=== PATIENT | male | born 1995 | race Two or more races ===

== ENCOUNTER 2024-09-09 16:06 | Emergency (ER) | payer MEDICAID, OTHER ==
[~2024-09-09] VITALS: Ht 157.5 cm; Wt 75.0 kg
[2024-09-09 16:17] VITALS: BP 138/78; PULSE 112; RESP 16; O2SAT 99
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
[2024-09-09] MEDS ORDERED: HYDROcodone-ACET 10/325MG TAB PO ONE (16:30)
== END 2024-09-09 19:47 | disposition left against medical advice (07) ==
LOC: ER 16:06
DX: M79.652 Pain in left thigh (principal); W23.0XXA Caught, crushed, jammed, or pinched between moving objects, initial encounter; Y93.89 Activity, other specified; Y92.89 Other specified places as the place of occurrence of the external cause; Y99.8 Other external cause status

== ENCOUNTER 2025-02-05 13:40 | Emergency (ER) | payer MEDICAID, OTHER ==
[~2025-02-05] VITALS: Ht 157.5 cm; Wt 71.3 kg
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
[2025-02-05 14:49] VITALS: BP 133/76; PULSE 98; RESP 16; TEMP 98.9; O2SAT 97
[2025-02-05 15:11] LABS: Basophils # (auto) 0 10 ^3/uL (0-0.2); Basophils % (auto) 0.5 % (0.0-2.0); Eosinophils # (auto) 0.2 10 ^3/uL (0-0.8); Eosinophils % (auto) 2.3 % (0.0-7.0); Hematocrit 41.6 % (41.0-53.0); Hemoglobin 14.1 g/dL (13.5-17.5); Lymphocytes # (auto) 2.6 10 ^3/uL (0.4-5.4); Lymphocytes % (auto) 28.3 % (10.0-50.0); Mean Corpuscular Hemoglobin 29.5 pg (28.0-32.0); Mean Corpuscular Volume 86.8 fL (80.0-100.0); Monocytes % (auto) 10.9 % (0.0-12.0); Neutrophils # (auto) 5.3 10 ^3/uL (1.6-8.6); Nucleated Red Blood Cells % 0.1 %; Platelet Count (auto) 365 10^3/uL (140-450); Red Cell Distribution Width 13.9 % (11.8-14.3); White Blood Cell 9.1 10^3/uL (4.4-10.8)
[2025-02-05 15:17] LABS: Chloride 105 mmol/L (98-107); Potassium 3.8 mmol/L (3.5-5.1); Sodium 139 mmol/L (136-145)
[2025-02-05 15:18] LABS: Anion Gap 6 (5-15); Calcium 9.1 mg/dL (8.7-10.4); Carbon Dioxide 28 mmol/L (20-31)
[2025-02-05 15:23] LABS: BUN/Creatinine Ratio 14.6 (10.0-20.0); Blood Urea Nitrogen 12 mg/dL (9-23); Glucose 93 mg/dL (74-106)
[2025-02-05] MEDS: cefTRIAXone SOD 1,000 MG VL IM ONE (16:22)
[2025-02-05] MEDS ORDERED: IBUP1TAB5 PO (16:23)
[2025-02-05] MEDS ORDERED: CIPR-173 PO (16:23)
[2025-02-05] MEDS: TETANUS-DIPTH-ACEL PERTUSSIS 0.5ML SYR Tdap IM ONE (16:23)
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
== END 2025-02-05 16:32 | disposition home or self-care (01) ==
LOC: ER 13:40
DX: S60.415A Abrasion of left ring finger, initial encounter (principal); X58.XXXA Exposure to other specified factors, initial encounter; Y93.89 Activity, other specified; Y92.89 Other specified places as the place of occurrence of the external cause; Y99.8 Other external cause status
CPT/HCPCS: 36415; 73130; 80048; 85025; 90471; 90715; 96372; 99284; J0696

== ENCOUNTER 2025-06-06 23:43 | Emergency (ER) | payer MEDICAID ==
[~2025-06-06] VITALS: Ht 157.5 cm; Wt 75.0 kg
[~2025-06-06 23:43] MED LIST: CIPR-173 PO; IBUP1TAB5 PO
[2025-06-06 23:46] VITALS: BP 128/90; PULSE 87; RESP 18; TEMP 98.5; O2SAT 100
[2025-06-07] MEDS ORDERED: HYDROcodone-ACET 10/325MG TAB PO ONE
[2025-06-07] MEDS ORDERED: KETOROLAC TROMETH 60MG/2ML VIAL IM ONE
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
[2025-06-07] MEDS ORDERED: CEPH500C PO (01:39)
[2025-06-07] MEDS ORDERED: IBUP-1456 PO (01:53)
== END 2025-06-07 04:09 | disposition home or self-care (01) ==
LOC: ER 23:43
DX: T22.211A Burn of second degree of right forearm, initial encounter (principal); T22.232A Burn of second degree of left upper arm, initial encounter; X58.XXXA Exposure to other specified factors, initial encounter; Y93.89 Activity, other specified; Y92.89 Other specified places as the place of occurrence of the external cause; Y99.8 Other external cause status
CPT/HCPCS: 16020

== ENCOUNTER 2025-06-09 20:06 | Emergency (ER) | payer MEDICAID ==
[~2025-06-09] VITALS: Ht 157.5 cm; Wt 67.9 kg
[~2025-06-09 20:06] MED LIST changes: +CEPH500C PO; +IBUP-1456 PO
[2025-06-09] MEDS ORDERED: AUG875T PO (20:37)
[2025-06-09] MEDS ORDERED: CLIN1CAP70 PO (20:37)
--- NOTE | 2025-06-09 20:39 | ED.PDOC ---
History of Present Illness HPI Comments 29 y/o M presents with c/c left jaw cheek swelling and pain, with associated difficulty swallowing. 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 Denial of any further acute symptoms. Chief Complaint: Face pain Time Seen by MD: 20:30 Primary Care Provider: EDISON Arteaga Notes: Nurses Notes, Medications, Allergies Allergies: Coded Allergies: NO KNOWN ALLERGIES (Unverified , 09/09/24) Home Meds Active Scripts Clindamycin Hcl (Clindamycin Hcl) 300 Mg Cap, 1 CAP PO BID for 7 Days, #14 CAP Prov:TESS HOOKER MD 06/09/25 Amoxicillin & Pot Clavulanate (AUGMENTIN TABLET) 875 Mg Tb, 875 MG PO BID for 10 Days, #20 TAB Prov:TESS HOOKER MD 06/09/25 Ibuprofen (Ibuprofen) 800 Mg Tab, 800 MG PO Q8HP PRN for 4 Days, #12 TAB Prov:GISSELL BANERJEE 06/07/25 Cephalexin Monohydrate (Cephalexin) 500 Mg Cap, 500 MG PO Q6HR for 5 Days, #25 CAP Prov:GISSELL BANERJEE 06/07/25 Ibuprofen Micronized (Ibuprofen) 600 Mg Tab, 600 MG PO TIDP PRN for 7 Days, #21 TAB 0 Refills Prov:MADELINE NINA NP 02/05/25 Ciprofloxacin Hcl (Cipro) 500 Mg Tab, 1 TAB PO BID for 7 Days, #14 TAB 0 Refills Prov:MADELINE NINA NP 02/05/25 Information Source: Patient Mode of Arrival: Ambulatory Past Medical History PAST MEDICAL HISTORY: Denies Surgical History: Denies all surgeries Family History Family History: Reviewed,noncontributory to illness, Unknown Social History Smoker: Non-Smoker Alcohol: Denies ETOH Use Drugs: Denies Drug Use Lives In: Home All Other Systems: Reviewed and Negative (As per HPI) Physical Exam General Appearance: No Apparent Distress, Normal HEENT: Pharynx Normal, TMs Normal, Other (left jaw cheeck swelling and tenderness, no fluctuance, neck is normal ) Neck: Full Range of Motion, Non-Tender, Normal, Normal Inspection Respiratory: Chest Non-Tender, Lungs Clear, No Accessory Muscle Use, No Respiratory Distress, Normal Breath Sounds Cardiovascular: No Edema, No JVD, No Murmur, No Gallop, Normal Peripheral Pulses, Regular Rate/Rhythm Breast Exam: Deferred Gastrointestinal: No Organomegaly, Non Tender, No Pulsatile Mass, Normal Bowel Sounds, Soft Genitalia: Deferred Pelvic: Deferred Rectal: Deferred Extremities: No calf tenderness, Normal capillary refill, Normal inspection, Normal range of motion, Non-tender, No pedal edema Musculoskeletal : Apperance: Normal Neurologic: Alert, fundraising officer II-XII nml as Tested, No Motor Deficits, Normal Affect, Normal Mood, No Sensory Deficits Cerebellar Function: Normal Reflexes: Normal Skin: Dry, Normal Color, Warm Lymphatic: No Adenopathy Was a procedure done? Was a procedure done?: No Differential Dx Considerations may include: tooth infection, medication noncompliance, among others X-Ray, Labs, Meds, VS Vital Signs Date Time Temp Pulse Resp B/P (MAP) Pulse Ox O2 Delivery O2 Flow Rate FiO2 06/10/25 00:43 107 18 103/68 (80) 99 06/09/25 22:30 99.7 124 16 137/94 (108) 100 99.7 06/09/25 22:30 124 16 100 Room Air 06/09/25 20:07 99.7 97 16 128/86 98 99.7 Current Medications Medications (Trade) Dose Ordered Sig/Sandra Route Start Time Stop Time Status Last Admin Clindamycin HCl (Cleocin Capsule) 300 mg ONCE ONCE PO 06/09/25 22:15 06/09/25 22:16 DC 06/09/25 22:32 Ketorolac Tromethamine (Toradol Injection) 30 mg ONCE ONCE IM 06/09/25 22:15 06/09/25 22:16 DC 06/09/25 22:32 Piperacillin Sod/ Tazobactam Sod 100 ml @ 100 mls/hr ONCE ONCE IV 06/09/25 22:30 06/09/25 23:29 DC 06/09/25 23:10 Sodium Chloride 1,000 ml @ 1,000 mls/hr Q1H ONCE IV 06/09/25 22:30 06/09/25 23:29 DC 06/09/25 22:44 Time of 1ST Reevaluation: 21:00 Reevaluation 1ST: Unchanged Patient Education/Counseling: Diagnosis, Treatment, Need For Follow Up Family Education/Counseling: Diagnosis, Treatment, Need For Follow Up SEPSIS Sepsis Screen Date sepsis recognized/suspect: Jun 09, 2025 Time Sepsis recognized/suspect: 2006 Recent Procedure: No On Antibiotic Therapy: No Respiratory Rate >20: No Heart Rate >90: Yes Temp<36 C (96.8 F) or >38.3 C: No SBP <90 or MAP <65 mmHG: No New Acute Mental Status Change: No Is the patient on CPAP, BIPAP,: No Vital Signs Date Time Temp Pulse Resp B/P (MAP) Pulse Ox O2 Delivery O2 Flow Rate FiO2 06/10/25 00:43 107 18 103/68 (80) 99 06/09/25 22:30 99.7 124 16 137/94 (108) 100 99.7 06/09/25 22:30 124 16 100 Room Air 06/09/25 20:07 99.7 97 16 128/86 98 99.7 Medications Medications Dose Ordered Sig/Sandra Route Start Time Stop Time Status Last Admin Dose Admin Clindamycin HCl 300 mg ONCE ONCE PO 06/09/25 22:15 06/09/25 22:16 DC 06/09/25 22:32 Ketorolac Tromethamine 30 mg ONCE ONCE IM 06/09/25 22:15 06/09/25 22:16 DC 06/09/25 22:32 Piperacillin Sod/ Tazobactam Sod 100 ml @ 100 mls/hr ONCE ONCE IV 06/09/25 22:30 06/09/25 23:29 DC 06/09/25 23:10 Sodium Chloride 1,000 ml @ 1,000 mls/hr Q1H ONCE IV 06/09/25 22:30 06/09/25 23:29 DC 06/09/25 22:44 Departure 1 Departure Time of Disposition: 23:00 Impression: Primary Impression: Dental abscess Disposition: HOME / SELF CARE / HOMELESS Condition: Stable e-Prescriptions Clindamycin Hcl (Clindamycin Hcl) 300 Mg Cap 1 CAP PO BID for 7 Days, #14 CAP Prov: TESS HOOKER MD 06/09/25 Amoxicillin & Pot Clavulanate (AUGMENTIN TABLET) 875 Mg Tb 875 MG PO BID for 10 Days, #20 TAB Prov: TESS HOOKER MD 06/09/25 Discharged With: Self Critical Care Note Critical Care Time?: No Stability Stability form required: No Heart Score Heart Score: Heart Score Response (Comments) Value History N/A 0 EKG N/A 0 Age N/A 0 Risk Factors N/A 0 Troponin N/A 0 Total 0 I personally scribed for TESS HOOKER MD ([email or web address]) on 06/09/25 at 20:39. Electronically submitted by Osman Hopkins ([email or web address]). TESS HOOKER MD Jun 09, 2025 20:39
[2025-06-09] MEDS: CLINDAMYCIN HCL 150 MG CAP PO ONE ×2 (20:45→22:32)
[2025-06-09] MEDS: PENICILLIN G BENZ 1,200,000 UNITS/2 ML SYRG IM ONE ×2 (20:45→22:31)
[2025-06-09] MEDS: KETOROLAC TROMETH 30 MG/ML 1ML VIAL IM ONE ×2 (20:45→22:32)
[2025-06-09 22:30] VITALS: TEMP 99.7
[2025-06-09] MEDS: SODIUM CHLORIDE 0.9% 1,000 ML IV ONE (22:44)
[2025-06-09] MEDS: PIPERACILLIN-TAZO 4.5GM 100 ML IV ONE (23:10)
[2025-06-10 00:43] VITALS: BP 103/68; PULSE 107; RESP 18; O2SAT 99
== END 2025-06-10 00:43 | disposition home or self-care (01) ==
LOC: ER 20:06
DX: K04.7 Periapical abscess without sinus (principal); R13.10 Dysphagia, unspecified
CPT/HCPCS: 96365; 96372; 99284; J1885; J2543; J7030; 96361